=== PATIENT | female | born 1965 | race Caucasian/White ===

== ENCOUNTER → 2021-04-19 | Outpatient (CLI) | payer BC ==
[~2021-04-19] MED LIST: LIDOCAINE 1% Multi-Dose 20 ML VIAL. INJ ONE
--- NOTE | 2021-04-19 14:48 | RAD ---
EXAMINATION: Ultrasound-guided fine-needle aspiration right thyroid nodule, 04/19/2021 9:46 AM CLINICAL INDICATION: Thyroid nodule COMPARISON: Thyroid ultrasound 03/20/2021 FINDINGS/TECHNIQUE: The purpose of the procedure, and risks and benefits were explained to the patient. Informed consent was obtained. A timeout was performed. Initial ultrasound images identified the right thyroid nodule. The skin overlying the patient's right neck was marked, prepped, and draped in standard sterile fashion. Skin and subcutaneous soft tissue were anesthetized with 1% lidocaine. Next, using continuous ultrasound guidance, four 25-gauge fine-n eedle aspiration samples were obtained of the thyroid nodule and given to the bean sprout laborer for anal ysis. The skin was cleansed and covered with a dressing. The patient tolerated the procedure well and left in stable condition. IMPRESSION: Technically successful, ultrasound-guided fine needle aspiration of right thyroid nodule. Electronically signed by: Terrie Hancock MD (04/19/2021 2:46 PM) [id number]
--- NOTE | 2021-04-24 15:19 | PATHOLOGY ---
Note [facility] Accession Number: [id number] TESTS RESULT FLAG UNITS REF RANGE LAB Clinician Provided Cytology Information No. of containers..01 Other (Miscellaneous) Source: RIGHT THYROID DIAGNOSIS: RIGHT THYROID INADEQUATE, INSUFFICIENT CELLS FOR STUDY. COMMENT, POORLY CELLULAR WITH FEWER THAN 6 GROUPS OF 10 FOLLICULAR CELLS PRESENT. 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 SUGGEST CLINICAL CORRELATION. Signed out by: Mike Horta MD, Pathologist NPI- [id number] Performed by: Jaguar Rosen, Artificial Flowers Supervisor ([facility]) Gross description: 30ML, CLEAR RED, 2F 2 A 2H /LCS 04/23/2021 1435 Local FLAG LEGEND: L-Low Normal,H-High Normal,LL-Alert Low,HH-Alert High <-Panic Low,>-Panic High,A-Abnormal,AA-Critical Abnormal Performed at: [address] [place] [address] Mike Horta MD, Specimen Comment: A courtesy copy of this report has been sent to [phone], [phone] Specimen Comment: [id number] Specimen Comment: Report sent to / DR CHUNG Performed at: [address] [place] [address] [address], [place], [place] [id number] MD Mike Horta MD Phone: [phone]
== END | disposition home or self-care (01) ==
LOC: US 09:47
PROVIDERS: ATTEND Family Medicine
DX: E04.1 Nontoxic single thyroid nodule (principal)
CPT/HCPCS: 10005

== ENCOUNTER → 2021-05-14 | Outpatient (CLI) | payer BC ==
--- NOTE | 2021-05-14 16:53 | RAD ---
CLINICAL HISTORY: Reason: Right Thyroid Biopsy Repeat; BX done 04-19-21-Inadequate cells / Spl. Instru ctions: / History: COMPARISON: None available. PROCEDURE: Preliminary sonographic images of the right thyroid nodule were obtained. Right thyroid nodule measu ring approximately 1.5 cm is again seen. The procedure and risks of ultrasound guided aspiration were explained to the patient and informed wr itten consent obtained. Verification pause was observed. Laterality was confirmed. The site of aspi ration was marked. Using standard sterile technique, 4 25 G fine needle aspirations of the right thyroid nodule were ob tained. In addition a single pass with a Rotex needle was also obtained. There were no immediate complications. The patient was observed in the radiology department and released in satisfactory condition. IMPRESSION: 1. Successful ultrasound-guided FNA of the right thyroid nodule. Electronically signed by: Kristian Watters MD (05/14/2021 4:51 PM) [id number]
== END | disposition home or self-care (01) ==
LOC: US 10:25
PROVIDERS: ATTEND Family Medicine
DX: E04.1 Nontoxic single thyroid nodule (principal)
CPT/HCPCS: 10005